=== PATIENT | male | born 1985 | race Caucasian/White ===

== ENCOUNTER 2020-08-28 10:00 | Emergency (ER) | payer OTHER ==
[2020-08-28 10:08] VITALS: BP 139/83
[2020-08-28 10:25] LABS: RAPID STREP SCREEN Negative (Negative)
--- NOTE | 2020-08-28 10:39 | ED Physician Documentation ---
PD HPI URI - Stated complaint Stated Complaint: SORE THROAT - Chief complaint Chief Complaint: General - History obtained from History obtained from: Patient - History of Present Illness Timing - onset: How many days ago (3) Timing duration: Days (3) Timing details: Abrupt onset, Still present Associated symptoms: Fever, Chills, Nasal congestion, Sore throat, Swollen nodes. No: Sinus pain, Dry cough, Productive cough Contributing factors: No: Sick contact (he says his partner is also developing sore throat today, but she does not have fevers as yet.), Travel, Immunocompromised Similar symptoms before: Diagnosis (states strep throat in past few years, felt similar.) Recently seen: Not recently seen Review of Systems Constitutional: reports: Fever (last night), Chills Nose: reports: Congestion. denies: Rhinorrhea / runny nose Throat: reports: Sore throat Respiratory: denies: Cough GI: denies: Vomiting, Diarrhea : denies: Dysuria, Discharge Skin: denies: Rash PD PAST MEDICAL HISTORY - Past Medical History Past Medical History: No - Present Medications Home Medications: Ambulatory Orders Medication Instructions Recorded Confirmed HYDROcod/ACETAM 5/325 [[place] 5/325] 1 ea PO Q6H PRN #10 tab 08/28/20 cephALEXin [Keflex] 500 mg PO TID #20 cap 08/28/20 dexAMETHasone [Decadron] 4 mg PO DAILY #5 tab 08/28/20 - Allergies Allergies/Adverse Reactions: Allergies Allergy/AdvReac Type Severity Reaction Status Date / Time No Known Drug Allergies Allergy Verified 08/28/20 10:03 PD ED PE NORMAL - Vitals Vital signs reviewed: Yes - General General: Alert and oriented X 3, Well developed/nourished - HEENT HEENT: No: Pharynx benign (tonsils both swollen with redness and some exudate. No peritonsillar swelling. Anterior adenopathy noted, left more than right. ) - Neck Neck: Supple, no meningeal sign, No adenopathy - Cardiac Cardiac: RRR, No murmur - Respiratory Respiratory: Clear bilaterally - Derm Derm: Normal color, Warm and dry, No rash Results - Vitals Vitals: Vital Signs - 24 hr 08/28/20 10:03 Temperature 37.3 C Heart Rate 93 Respiratory 16 Rate Blood Pressure 139/83 H O2 Saturation 100 Oxygen O2 Source Room air - Labs Labs: Laboratory Tests 08/28/20 10:10 Group A Strep Rapid Negative PD MEDICAL DECISION MAKING - ED course Complexity details: reviewed results, considered differential (has 4/4 Centor. Rapid test negative but culture pending. He says his partner has developing sore throat as well. Pt not suspicious for STDs.), d/w patient Departure - Departure Disposition: 01 Home, Self Care Clinical Impression: Acute tonsillitis Qualifiers: Pharyngitis/tonsillitis etiology: unspecified etiology Qualified Code(s): J03.90 - Acute tonsillitis, unspecified Condition: Stable Record reviewed to determine appropriate education?: Yes Instructions: ED Strep Pharyngitis Poss Follow-Up: KAT[facility]inton [Provider Group] Prescriptions: dexAMETHasone [Decadron] 4 mg PO DAILY #5 tab cephALEXin [Keflex] 500 mg PO TID #20 cap HYDROcod/ACETAM 5/325 [[place] 5/325] 1 ea PO Q6H PRN #10 tab PRN Reason: Pain Comments: This looks very suspicious for bacterial cause such as nongroup A strep. The rapid strep test was negative but again is specific for group A strep and this is probably more likely a different type. We will treat empirically for strep tonsillitis at this point with antibiotics anti-inflammatory and pain medicine. The culture will result in a couple of days to better confirm. Alternatively it could be a viral illness instead. We will call you if we need to modify the antibiotic treatment. I would anticipate improvement over the next several days and resolution by 3 to 5 days. Discharge Date/Time: 08/28/20 11:08
[2020-08-28] MEDS ORDERED: cephALEXin 250 MG CAPSULE PO STA (10:54)
[2020-08-28] MEDS ORDERED: DEXAMETHASONE 10 MG/ML VIAL PO STA (10:54)
[2020-08-28] MEDS ORDERED: CHERRY SYRUP 10 ML UDC PO ONE (10:54)
[2020-08-28] MEDS ORDERED: IBUPROFEN 600 MG TABLET PO STA (10:54)
== END 2020-08-28 11:08 | disposition home or self-care (01) ==
LOC: ED 10:00
DX: J03.90 Acute tonsillitis, unspecified (principal)
CPT/HCPCS: 81599; 87070; 87077; 87430; 99283; A9270; 87491; 87591; 87661